=== PATIENT | male | born 1990 | race Two or more races ===

== ENCOUNTER 2018-08-28 22:02 | Emergency (ER) | payer OTHER ==
[~2018-08-28] VITALS: Ht 182.9 cm; Wt 129.3 kg
[~2018-08-28 22:02] MED LIST: LEVAQUIN750 MG PO; MIRALAX12 EA PO
== END 2018-08-28 23:53 | disposition home or self-care (01) ==
LOC: ER 22:02
DX: H66.91 Otitis media, unspecified, right ear (principal)

== ENCOUNTER 2018-12-12 19:38 | Emergency (ER) | payer OTHER ==
[~2018-12-12] VITALS: Ht 182.9 cm; Wt 131.5 kg
== END 2018-12-12 21:49 | disposition home or self-care (01) ==
LOC: ER 19:38
DX: R10.12 Left upper quadrant pain (principal)

== ENCOUNTER 2019-01-23 10:39 | Emergency (ER) | payer OTHER ==
[~2019-01-23] VITALS: Ht 182.9 cm; Wt 127.0 kg
== END 2019-01-23 15:56 | disposition home or self-care (01) ==
LOC: ER 10:39
DX: B34.9 Viral infection, unspecified (principal)

== ENCOUNTER 2019-06-30 02:38 | Emergency (ER) | payer OTHER ==
[~2019-06-30] VITALS: Ht 182.9 cm; Wt 133.8 kg
[2019-06-30] MEDS ORDERED: AMOX-CLAV 500-1 EACH (02:53)
== END 2019-06-30 08:02 | disposition home or self-care (01) ==
LOC: ER 02:38
DX: H66.41 Suppurative otitis media, unspecified, right ear (principal)

== ENCOUNTER 2020-03-10 15:58 | Emergency (ER) | payer OTHER ==
[~2020-03-10] VITALS: Ht 182.9 cm; Wt 131.5 kg
[~2020-03-10 15:58] MED LIST changes: +AMOX-CLAV 500-1 EACH
== END 2020-03-10 17:12 | disposition home or self-care (01) ==
LOC: ER 15:58
DX: J02.8 Acute pharyngitis due to other specified organisms (principal)

== ENCOUNTER 2020-11-09 17:31 | Emergency (ER) | payer OTHER ==
[~2020-11-09] VITALS: Ht 182.9 cm; Wt 133.8 kg
[2020-11-10] MEDS ORDERED: ORPHENADRINE C100 MG PO (00:23)
[2020-11-10] MEDS ORDERED: KETO10TA2 PO (00:23)
[2020-11-10] MEDS ORDERED: PEPCID AC20 MG PO (00:23)
== END 2020-11-10 00:31 | disposition home or self-care (01) ==
LOC: ER 17:31
DX: M54.5 Low back pain (principal); K29.60 Other gastritis without bleeding; M54.2 Cervicalgia; M62.838 Other muscle spasm; Z03.818 Encounter for observation for suspected exposure to other biological agents ruled out; R53.81 Other malaise

== ENCOUNTER 2021-12-12 08:36 | Emergency (ER) | payer OTHER ==
[~2021-12-12] VITALS: Ht 182.9 cm; Wt 131.5 kg
[~2021-12-12 08:36] MED LIST changes: +KETO10TA2 PO; +ORPHENADRINE C100 MG PO; +PEPCID AC20 MG PO
== END 2021-12-12 09:16 | disposition home or self-care (01) ==
LOC: ER 08:36
DX: S02.5XXA Fracture of tooth (traumatic), initial encounter for closed fracture (principal); X58.XXXA Exposure to other specified factors, initial encounter; Y93.9 Activity, unspecified; Y92.9 Unspecified place or not applicable; Y99.9 Unspecified external cause status